=== PATIENT | male | born 1960 | race American Indian/Alaskan Native ===

== ENCOUNTER 2025-06-14 18:11 | Inpatient (IN) | payer MEDICARE, SELFPAY ==
[2025-06-14] VITALS (10 sets, daily range): BP systolic 141–163; BP diastolic 84–96; BMI 27.5; BMI 27.4
[2025-06-14 13:43] LABS: Hematocrit 23.1 % (39.0-52.0); Hemoglobin 6.8 g/dL (13.0-18.0); Mean Corp Hgb Conc. 29.4 g/dL (33.0-37.0); Mean Corpuscular Volume 70.6 fL (80.0-94.0); Nucleated Red Blood Cells % 0 % (-); Platelet Count 279 10^3/uL (130-400); Red Cell Dist. Width 16.5 % (11.5-14.5)
[2025-06-14 14:07] LABS: ALT (SGPT) 26 U/L (0-50); AST (SGOT) 25 U/L (17-59); Albumin 4.7 g/dl (3.5-5.0); Alkaline Phosphatase 63 U/L (38-126); Blood Urea Nitrogen 9 mg/dl (9-20); Calcium 8.7 mg/dl (8.4-10.2); Carbon Dioxide 24 mmol/L (22-30); Chloride 106 mmol/L (98-107); Glucose 122 mg/dl (70-99); Potassium 4.6 mmol/L (3.5-5.1); Sodium 139 mmol/L (135-145); Total Protein 7.7 g/dl (6.3-8.2); eGFR > 60.00
--- NOTE | 2025-06-14 16:24 | ED.GENMED ---
History of Present Illness
General
Chief Complaint: Rectal Bleeding
Source: patient
Exam Limitations: none
Time Seen by Provider: 06/14/25 16:02
History of Present Illness
History of Present Illness:
65yoM with a history of hypertension and BPH presenting with his daughter for evaluation of an abnormal outpatient lab. Patient had routine lab work 2 days ago and was found to have a hemoglobin of 6.9. Last blood work in September 2024 showed a
hemoglobin of 12.6. Patient reports intermittent rectal bleeding for the past 2 months. His last episode of rectal bleeding was 2 days ago. He has been symptomatic for the past week with shortness of breath and fatigue. No syncope. He denies
any abdominal or rectal pain. He had a colonoscopy in 2018 which showed multiple polyps and it was recommended that he have a repeat colonoscopy in 3 to 5 years which has not been scheduled. He does not take any blood thinners.
Phy Exam
General Physical Exam
General Presentation: no apparent distress
General Skin: warm and dry
General Habitus: normal
General Mental: alert
ENT Exam
ENT Exam: normocephalic
Cardiovascular Exam
Cardiovascular Exam: regular rate/rhythm
Pulmonary Exam
Pulmonary Exam: lungs clear, no respiratory distress, no rales, no crackles, no rhonchi and no wheezing
Gastrointestinal Exam
Gastrointestinal Exam: non tender, soft and non distended
Stool: other (Non-thrombosed external hemorrhoids. No stool obtained on digital rectal exam. No guilherme blood noted.)
Neurological Exam
Neurological Exam: alert
[place] Coma Scale
Eye Opening: Spontaneous
Verbal Response: Oriented
Motor Response: Obeys Commands
GCS Total Score: 15
Skin Exam
Skin Exam: normal color and warm/dry
Psychiatric Exam
Psychiatric Exam: normal mood/affect
Course
Orders/Labs/Results
Orders:
Orders
06/14/25 13:15
Type+Screen Urgent
Complete Blood Count/With Diff Urgent
Comprehensive Metabolic Panel Urgent
06/14/25 16:23
ABO2 Routine
BBK Wristband Number:
Associate notified that ABO2 has been ordered: [id number]
Date: 06/14/25
Time: 13:37
High School Coach ID: [id number]
06/14/25 16:26
Cardiac Monitoring- Treatment ONCE
06/14/25 16:27
Electrocardiogram (*1) Urgent
Reason for Study: Shortness of Breath
EKG- Treatment ONCE
06/14/25 16:32
Blood Bank Products [* Blood Bank Products] Urgent
Blood Bank Products: *Packed RBC Leuko(PRBC's)
Quantity: 1
Transfuse Today: Yes
Reason: Anemia
Abnormal Lab Results
06/14/25
13:15
RBC 3.27 L 10^6/uL
(4.70-6.10)
Hgb 6.8 L* g/dL
(13.0-18.0)
Hct 23.1 L %
(39.0-52.0)
MCV 70.6 L fL
(80.0-94.0)
MCH 20.8 L pg
(27.0-31.0)
MCHC 29.4 L g/dL
(33.0-37.0)
RDW 16.5 H %
(11.5-14.5)
Immature Gran % 0.6 H %
(0-0.5)
Monocytes % 11.5 H %
(1.7-9.3)
Glucose 122 H mg/dl
(70-99)
06/14/25 13:15
06/14/25 13:15
Vital Signs
Initial and Last Documented VS:
Initial Vital Signs
Temp Pulse Resp BP Pulse Ox
98 F 86 18 146/84 99
08/15/25 13:08 06/14/25 13:08 06/14/25 13:08 06/14/25 13:08 06/14/25 13:08
Last Documented Vital Signs
Temp Pulse Resp BP Pulse Ox
98.2 F 69 9 146/84 99
06/14/25 16:25 06/14/25 16:10 06/14/25 16:10 06/14/25 13:08 06/14/25 16:26
MDM/Problems Addressed
Differential Diagnosis Includes:
65yoM presenting for a hemoglobin of 6.9 on outpatient labs 2 days ago. Reports intermittent rectal bleeding x 2 days. Symptomatic with SOB and fatigue. VSS. He is non-toxic appearing. No stool obtained on LEONARD although no guilherme blood noted.
Differential diagnosis includes but is not limited to: Acute blood loss anemia, GI bleed, diverticular bleeding, hemorrhoidal bleeding, AVM, malignancy
Repeat lab work obtained in triage and hemoglobin is 6.8. Remainder of labs including BUN are normal. Consent obtained and 1 unit PRBCs ordered for transfusion. Will admit for further evaluation and management.
*Pulse Oximetry
SaO2: 99
Oxygen Mode of Delivery: Room air
Patient hypoxic: no (99%)
*EKG
Interpreted by ED Provider?: Yes
EKG Intrepretation Date: 06/14/25
Heart Rate: 66
Rate: normal
Rhythm: sinus
[place]: normal axis
Interval: normal interval
QRS Pattern: normal QRS
Ischemia: no ischemia
*Critical Care Note
Total Time (30-74mins, 75-104mins- exclusive of procedures): Not Applicable
ED Attending Note
-
Portions of this chart may have been created with voice recognition software.� Occasional wrong word or��sound alike� substitutions may have occurred due to the inherent limitations of voice recognition software.
Discharge Plan
Departure
Patient Disposition: Admit
Date of Disposition: 06/14/25
Time of Disposition: 16:52
Presentation/result/management discussed w/ accepting MD/DO: Hospitalist
Discharge Problem:
Symptomatic anemia, Rectal bleeding
Prescriptions:
No Action
tamsulosin [Flomax] 0.4 mg Capsule
0.4 mg PO HS
vitamin B complex [B Complete] Tablet
1 tab PO DAILY
lisinopril 40 mg Tablet
40 mg PO DAILY
Interventions
Interventions:
*Risk Screen - Suicide Last Done: 06/14/25 13:08
*General Assessment Last Done: 06/14/25 13:08
*Neglect/Abuse Screening Last Done: 06/14/25 13:08
*ED- Fall Risk Assessment Last Done: 06/14/25 16:26
*ED COVID-19 Vaccine History Last Done: 06/14/25 16:26
VB-Lxzsqu-Kziyfzwzbj Assessment Last Done: 06/14/25 16:13
ED- Cardiac Assessment Last Done: 06/14/25 16:13
ED- Pulmonary Assessment Last Done: 06/14/25 16:13
Discharge Date and Time
Print Language: GREEK
--- NOTE | 2025-06-14 17:06 | W.PN.UPDATE ---
Update Note
Progress Note Update
I saw and examined the patient.
The PELT DROPPER or PA's note was reviewed and I agree with the note.
General: No Apparent Distress, Comfortable and Conversant
HEENT: NormoCephalic, Moist mucous membranes, Atraumatic
Respiratory: Clear and Non Labored Respirations
Cardiac: S1/S2 and Regular Rhythm; No Rub or Gallop
GI: Soft, Non Tender, Non Distended and Normal Bowel Sounds
Musculoskeletal: No Edema, no deformity
Skin: Warm and dry
: NO Fernandez
Neuro: Awake, Alert, Nonfocal/grossly intact
Psych: Calm and Intact Judgment/Insight
Mr. Horta is a 65-year-old male with medical history of hypertension, enlarged prostate (on Flomax), and daily alcohol use (3 drinks per day, usually beer) who presented with intermittent rectal bleeding from the past few months. He reports bright
red blood sometimes with clots dripping in the toilet usually with bowel movements but sometimes even without bowel movements. He also reports that these bleeding episodes are sometimes associated with mild rectal pain but not abdominal pain. He
has been experiencing progressive weakness and dizziness throughout this time. He was seen by his PCP and obtained outpatient labs 2 days ago. His labs resulted with a hemoglobin of 6.8 today which is why he is now seeking medical treatment in the
ED. His hemoglobin was 12.6 in September 2024.
In the ED he has been normotensive, afebrile, and saturating appropriately on room air. His labs in the ED were significant for hemoglobin of 6.8 with an MCV of 70.6. He was consented for blood transfusion and has been admitted for further
evaluation and management of GI bleeding.
GI bleeding:
- Appears lower, likely internal hemorrhoids
- Consent obtained, type and screen, will transfuse 1 unit PRBCs
- Will ask for GI evaluation, eventual colonoscopy/sigmoidoscopy
Symptomatic anemia requiring transfusions:
- Plan as above
Hypertension:
- Continue home lisinopril with holding parameters for hypotension
DVT prophylaxis: SCDs considering active bleeding
CODE STATUS: Full code
Total time spent on today's encounter was 54 minutes.
--- NOTE | 2025-06-14 17:19 | HPS.HSE ---
Family Physician
-
Family Physician: Zack Boudreaux
Chief Complaint
-
Low Hgb; Rectal Bleeding
History of Present Illness
Patient is a 65 y/o male past medical history of hypertension and BPH who presents with low hemoglobin and rectal bleeding. Patient had routine blood work completed two days ago which revealed low hemoglobin and he was referred to the emergency
department for evaluation. Patient reports intermittent bright red blood per rectum for the last several months. He reports bleeding will occur for a few days and then seem to stop on its own. He notes episodes are occasionally associate with some
rectal pain. He states he did have a colonoscopy back in 2019 which did show multiple polyps. He reports associated dizziness and fatigue.
Medical History
Past Medical History
Past Medical History: Reports Other
Additional Past Medical History:
Essential Hypertension
BPH
Past Surgical History: Reports None
Social History
Tobacco: Non-smoker
Alcohol: Daily (~ 3 Beers Nightly)
Family History
Family History: Other (Patient denies any family history of colon cancer or inflammatory bowel disease )
Allergies / Home Medications
Allergies reflects when Allergies were last updated in [facility].
Home Medications with original date entered in [facility]
Allergy/Medication List:
Allergies
Allergy/AdvReac Type Severity Reaction Status Date / Time
No Known Allergies Allergy Unverified 06/14/25 13:07
Home Medications
lisinopril 40 mg tablet 40 mg PO DAILY 06/14/25
tamsulosin 0.4 mg capsule (Flomax) 0.4 mg PO HS 06/14/25
vitamin B complex 1 tab PO DAILY 06/14/25
Review of Systems
-
A 12 point ROS was completed and negative except as noted: Yes
Constitutional: Denies Fever
Respiratory: Denies Cough
Cardiac: Denies Chest Pain
Physical Exam
Vital Signs
Vital Signs
Temp Pulse Resp BP Pulse Ox
98.2 F 69 9 146/84 99
06/14/25 16:25 06/14/25 16:10 06/14/25 16:10 06/14/25 13:08 06/14/25 16:26
Physical Exam
General: Comfortable and Conversant
HEENT: Anicteric and Moist mucous membranes
Respiratory: Clear and Non Labored Respirations
Cardiac: S1/S2 and Regular Rhythm
GI: Soft and Non Tender
Rectal: Deferred by Provider and Other (Hemorrhoids noted by ED staff)
Musculoskeletal: No Clubbing and No Cyanosis
Skin: Warm and Dry
Neuro: Awake, Alert, Oriented and Nonfocal/grossly intact
Psych: Calm
Laboratory Results
-
06/14/25 13:15
06/14/25 13:15
Laboratory Results
Total Bilirubin 0.5 mg/dl (0.2-1.3) 06/14/25 13:15
AST 25 U/L (17-59) 06/14/25 13:15
ALT 26 U/L (0-50) 06/14/25 13:15
Alkaline Phosphatase 63 U/L (38-126) 06/14/25 13:15
Data Reviewed
-
Lab Data: Labs Reviewed by me
Impression/Plan
-
Symptomatic Anemia secondary to Rectal Bleeding (likely hemorrhoidal in nature)
-Transfuse 1 unit PRBCs
-Trend Hgb
-Consult GI
-Allow clear liquids
Essential Hypertension
-Continue lisinopril with hold parameters
BPH
-Continue tamsulosin
Daily Alcohol Use
-Monitor for signs/symptoms of withdrawal
DVT proph: SCDs
Code Status: Full COde
[2025-06-14 18:27] LABS: Total Iron Binding Capacity 481 ug/dl (261-462)
[2025-06-14 18:30] LABS: Iron < 20 ug/dl (49-181)
[2025-06-14 19:24] LABS: Ferritin 3.7 ng/ml (17.9-464.0)
--- NOTE | 2025-06-14 19:30 | EDRN ---
Report received, updated patient that they will go upstairs shortly
[2025-06-14 19:55] LABS: Folate 13.6 ng/ml (2.76-20); Vitamin B12 331 pg/ml (239-931)
[2025-06-14] MEDS: FLOMAX 0.4 MG PO (22:54)
[2025-06-15 00:43] LABS: Hematocrit 24.9 % (39.0-52.0); Hemoglobin 7.6 g/dL (13.0-18.0)
--- NOTE | 2025-06-15 06:17 | CON.GI ---
Addendum entered and electronically signed by Noe Clement MD 06/15/25 11:37:
I saw and examined the patient.
The PA's note was reviewed and I agree with the note.
Comment:
65-year-old male with h/o HTN and BPH who presents with symptomatic anemia and rectal bleeding. He had outpatient labs which showed Hgb of 6.9 and was advised to come to the ER. He reports having rectal bleeding for past few months consisting
clots/maroon-colored blood with stool. Denies melena. No prior EGD. Denies abdominal pain or NSAID use. His last colonoscopy was in 2019 with few polyps. He received a unit of blood with appropriate response. Given the degree of anemia, we
will plan for endoscopic evaluation during his inpatient stay. Plan for EGD/colonoscopy on Tuesday. Regular diet today, CLD tomorrow with bowel prep.
Original Note:
Consultation
-
Date/Time Consultation Requested: 06/14/252039
Date/Time Consultation Performed: 06/15/25829
Requesting Provider: Brenda Godfrey PA-C
Performing Provider: REGINALD Patel, Noe Clement MD
Reason for Consultation: rectal bleeding
Medical History
Chief Complaint / HPI
Chief Complaint: shortness of breath, rectal bleeding
History of Present Illness:
Pt is a 65yo with hx BPH, daily ETOH use 2-3 drinks, and HTN presents to ER with low hbg and rectal bleeding. Prior to admission noted with hbg 6.9 with last check in September 2024 12.6. On admission hbg 6.8 and iron studies consistent with iron
deficiency. Rectal exam in ER with non thrombosed hemorrhoids without guilherme blood. hx colonoscopy in 2019 pt recall as normal. No hx EGD in past.
At this time patient admits to passing intermittent red blood with larger amounts at time and entire bowel red. He otherwise denies dysphagia, GERD, nausea, vomiting, abdominal pain, diarrhea, constipation or black stools. Denies NSAID or
anticoagulation use.
Past Medical History
Past Medical History: HTN and Other (BPH)
Social History
Tobacco: Non-Smoker
Alcohol: Daily (2-3 drinks)
Drug: None
Personal:
Living: With Family
Employment: Retired
Family History
Family History: Other (no family hx colon Ca or polyps)
Allergies / Home Medications
Allergy/AdvReac Type Severity Reaction Status Date / Time
No Known Allergies Allergy Unverified 06/14/25 13:07
�Medication �Instructions �Recorded
lisinopril 40 mg tablet 40 mg PO DAILY 06/14/25
tamsulosin 0.4 mg capsule (Flomax) 0.4 mg PO HS 06/14/25
vitamin B complex 1 tab PO DAILY 06/14/25
Review of Systems
-
History Source: Patient
Constitutional: Reports No Symptoms
Respiratory: Reports Trouble Breathing
Cardiac: Reports No Symptoms
Abdomen/GI: Reports Bloody Stools
: Reports No Symptoms
Musculoskeletal: Reports No Symptoms
Skin: Reports No Symptoms
Neurological: Reports Weakness
Endocrine: Reports No Symptoms
Hematologic/Lymphatic: Reports Bleeding
Vital Signs
Temp Pulse Resp BP Pulse Ox
98.0 F 66 16 155/95 99
06/14/25 20:40 06/14/25 20:40 06/14/25 20:40 06/14/25 20:40 06/14/25 20:40
Physical Exam
Exam
General: Well Developed, Well Nourished and No Apparent Distress
HEENT: Normocephalic and Anicteric
Respiratory: Clear
Cardiac: Regular Rhythm
GI: Soft, Non Tender and Non Distended
Rectal: Other (ER with non thrombosed hemorrhoids without guilherme blood)
Musculoskeletal: No Clubbing and No Cyanosis
Skin: Warm and Dry
Neuro: Awake, Alert and AO x 3
Psych: Calm
Results
WBC 5.1 10^3/uL (4.8-10.8) 06/14/25 13:15
Hgb 7.6 g/dL (13.0-18.0) L 06/15/25 00:25
Hct 24.9 % (39.0-52.0) L 06/15/25 00:25
MCV 70.6 fL (80.0-94.0) L 06/14/25 13:15
Plt Count 279 10^3/uL (130-400) 06/14/25 13:15
Absolute Neuts (auto) 2.7 10^3/uL (1.4-6.5) 06/14/25 13:15
Sodium 139 mmol/L (135-145) 06/14/25 13:15
Potassium 4.6 mmol/L (3.5-5.1) 06/14/25 13:15
Chloride 106 mmol/L (98-107) 06/14/25 13:15
Carbon Dioxide 24 mmol/L (22-30) 06/14/25 13:15
BUN 9 mg/dl (9-20) 06/14/25 13:15
Creatinine 0.7 mg/dL (0.7-1.3) 06/14/25 13:15
Calcium 8.7 mg/dl (8.4-10.2) 06/14/25 13:15
Total Bilirubin 0.5 mg/dl (0.2-1.3) 06/14/25 13:15
AST 25 U/L (17-59) 06/14/25 13:15
ALT 26 U/L (0-50) 06/14/25 13:15
Alkaline Phosphatase 63 U/L (38-126) 06/14/25 13:15
Diagnostic Image Results:
Prior GI Procedures:
EGD:
Colonoscopy:
Assessment / Plan
-
Pt is a 65yo with hx BPH, daily ETOH use, and HTN presents to ER with low hbg and rectal bleeding. Prior to admission noted with hbg 6.9 with last check in September 2024 12.6. On admission hbg 6.8 and iron studies consistent with iron deficiency.
Rectal exam in ER with non thrombosed hemorrhoids without guilherme blood.Last colonoscopy 2019 pt recalls as normal.
-rectal bleeding
-symptomatic microcytic iron deficiency anemia likely related to slow blood loss with rectal bleeding
other med problems:
-BPH
-daily ETOH use
-HTN
PLAN:
etiology of bleeding related to PUD, ectasia, mass, hemorrhoids with increased rectal bleeding vs other
plan for EGD/colon - will review with Dr. Clement if inpatient vs OP testing and timing
trend hbg and stool records
ok for clear diet
add IV iron
family updated
-
-
Thank you for consultation and allowing me to participate in the patient's care. Please call the stone driller helper GI physician during the after hours with any questions or concerns.
[2025-06-15 07:03] LABS: Hematocrit 25.5 % (39.0-52.0); Hemoglobin 7.8 g/dL (13.0-18.0); Mean Corp Hgb Conc. 30.6 g/dL (33.0-37.0); Mean Corpuscular Volume 71.2 fL (80.0-94.0); Platelet Count 282 10^3/uL (130-400); Red Cell Dist. Width 16.7 % (11.5-14.5)
[2025-06-15 07:42] LABS: Blood Urea Nitrogen 8 mg/dl (9-20); Calcium 8.3 mg/dl (8.4-10.2); Carbon Dioxide 22 mmol/L (22-30); Chloride 107 mmol/L (98-107); Estimated Creatinine Clearance 115 ml/min; Glucose 100 mg/dl (70-99); Potassium 4.4 mmol/L (3.5-5.1); Sodium 138 mmol/L (135-145); eGFR > 60.00
[2025-06-15] MEDS: THIAMINE INJECTION 200 MG IV ×2 (08:07→21:21)
[2025-06-15] MEDS: FOLVITE 1 MG PO (08:08)
[2025-06-15] MEDS: ZESTRIL 40 MG PO (08:08)
[2025-06-15 08:10] VITALS: BP 126/73
[2025-06-15 11:39] VITALS: BP 116/71
[2025-06-15] MEDS: FERRLECIT 110 MG IV (13:03)
--- NOTE | 2025-06-15 13:42 | W.PN.HOSP.TC ---
Today's Communication/Plan
-
Assessment / Plan
Assessment / Plan
General: No Apparent Distress, Comfortable and Conversant
HEENT: NormoCephalic, Moist mucous membranes, Atraumatic
Respiratory: Clear and Non Labored Respirations
Cardiac: S1/S2 and Regular Rhythm; No Rub or Gallop
GI: Soft, Non Tender, Non Distended and Normal Bowel Sounds
Musculoskeletal: No Edema, no deformity
Skin: Warm and dry
: NO Fernandez
Neuro: Awake, Alert, Nonfocal/grossly intact
Psych: Calm and Intact Judgment/Insight
Mr. Horta is a 65-year-old male with medical history of hypertension, enlarged prostate (on Flomax), and daily alcohol use (3 drinks per day, usually beer) who presented with intermittent rectal bleeding from the past few months. He reports bright
red blood sometimes with clots dripping in the toilet usually with bowel movements but sometimes even without bowel movements. He also reports that these bleeding episodes are sometimes associated with mild rectal pain but not abdominal pain. He
has been experiencing progressive weakness and dizziness throughout this time. He was seen by his PCP and obtained outpatient labs 2 days ago. His labs resulted with a hemoglobin of 6.8 which is why he sought medical treatment in the ED. His
hemoglobin was 12.6 in September 2024.
In the ED he was normotensive, afebrile, and saturating appropriately on room air. His labs in the ED were significant for hemoglobin of 6.8 with an MCV of 70.6. He was consented for blood transfusion and has been admitted for further evaluation
and management of GI bleeding.
GI bleeding:
- Appears lower, likely internal hemorrhoids
- Consent obtained, transfused 1 unit PRBCs with appropriate response and hemoglobin 7.8
- No active bleeding currently
- GI following, plan for EGD and colonoscopy on Sunday 06/17
- Regular diet for now, clear liquids and bowel prep tomorrow
Symptomatic anemia requiring transfusions:
- Plan as above
Hypertension:
- Continue home lisinopril with holding parameters for hypotension
DVT prophylaxis: SCDs considering recent bleeding
CODE STATUS: Full code
Total time spent on today's encounter was 52 minutes.
Anticipated Discharge: 24 - 48 hours
Subjective/Interval History
-
Date of Service: June 15, 2025
Patient was seen and examined at bedside this morning. Feeling less fatigued and no longer short of breath after improvement in hemoglobin following transfusion of 1 unit PRBCs. Continuing clear liquid diet.
Objective Data
-
Labs:
Laboratory Results
06/15/25
06:19
WBC 5.3
Hgb 7.8 L
Hct 25.5 L
Plt Count 282
Sodium 138
Potassium 4.4
Chloride 107
Carbon Dioxide 22
BUN 8 L
Creatinine 0.7
Glucose 100 H
Calcium 8.3 L
Vital Signs:
Vital Signs
Temp Pulse Resp BP Pulse Ox
98.3 F 66 16 116/71 96
06/15/25 11:39 06/15/25 11:39 06/15/25 11:39 06/15/25 11:39 06/15/25 11:39
I&O
06/14/25 06/15/25 06/16/25
06:59 06:59 06:59
Intake Total 250 / 250
Balance 250 / 250
Review of Systems
-
History Source: Patient
All other systems: Reviewed and negative
Physical Exam
-
General: No Apparent Distress
[2025-06-15 16:42] VITALS: BP 105/61
[2025-06-15 19:52] VITALS: BP 120/76
[2025-06-15] MEDS: FLOMAX 0.4 MG PO (21:21)
[2025-06-15 23:45] VITALS: BP 110/67
[2025-06-16 03:27] VITALS: BP 106/73
[2025-06-16 07:25] LABS: INR 1.09; PT 14.4 Sec (11.4-14.6)
[2025-06-16 07:28] LABS: Hematocrit 27.2 % (39.0-52.0); Hemoglobin 8.2 g/dL (13.0-18.0); Mean Corp Hgb Conc. 30.1 g/dL (33.0-37.0); Mean Corpuscular Volume 71.6 fL (80.0-94.0); Platelet Count 297 10^3/uL (130-400); Red Cell Dist. Width 17.4 % (11.5-14.5)
[2025-06-16 07:30] VITALS: BP 119/68
[2025-06-16 07:51] LABS: Blood Urea Nitrogen 13 mg/dl (9-20); Calcium 8.8 mg/dl (8.4-10.2); Carbon Dioxide 20 mmol/L (22-30); Chloride 111 mmol/L (98-107); Estimated Creatinine Clearance > 125 ml/min; Glucose 105 mg/dl (70-99); Potassium 4.5 mmol/L (3.5-5.1); Sodium 138 mmol/L (135-145); eGFR > 60.00
[2025-06-16] MEDS: FOLVITE 1 MG PO (08:41)
[2025-06-16] MEDS: THIAMINE INJECTION 200 MG IV ×2 (08:41→21:43)
[2025-06-16] MEDS: ZESTRIL PO (08:42)
[2025-06-16 11:30] VITALS: BP 113/67
--- NOTE | 2025-06-16 12:53 | W.PN.GI.CBS2 ---
Today's Communication / Plan
-
egd/colon tomorrow
Assessment / Plan
-
Pt is a 65yo with hx BPH, daily ETOH use, and HTN presents to ER with low hbg and rectal bleeding. Prior to admission noted with hbg 6.9 with last check in September 2024 12.6. On admission hbg 6.8 and iron studies consistent with iron deficiency.
Rectal exam in ER with non thrombosed hemorrhoids without guilherme blood.Last colonoscopy 2019 pt recalls as normal.
No further bleeding o/n. CLD today. Hgb 8.2 today. Will plan on EGD/colonoscopy tomorrow.
Total Time Spent with Patient (in minutes): 35
Subjective
Subjective
Date of Service: June 16, 2025
No events overnight.
Objective
Data Reviewed
Laboratory Data:
Laboratory Results
06/16/25 06:25
06/16/25 06:25
Laboratory Results
PT 14.4 Sec (11.4-14.6) 06/16/25 06:25
INR 1.09 06/16/25 06:25
Total Bilirubin 0.5 mg/dl (0.2-1.3) 06/14/25 13:15
AST 25 U/L (17-59) 06/14/25 13:15
ALT 26 U/L (0-50) 06/14/25 13:15
Alkaline Phosphatase 63 U/L (38-126) 06/14/25 13:15
Vital Signs and I&O:
Vital Signs
Temp Pulse Resp BP Pulse Ox
97.9 F 78 16 113/67 98
06/16/25 11:30 06/16/25 11:30 06/16/25 11:30 06/16/25 11:30 06/16/25 11:32
I&O
06/15/25 06/16/25 06/17/25
06:59 06:59 06:59
Intake Total 250 / 250 960 / 960
Balance 250 / 250 960 / 960
--- NOTE | 2025-06-16 13:04 | W.PN.HOSP.TC ---
Today's Communication/Plan
-
Assessment / Plan
Assessment / Plan
General: No Apparent Distress, Comfortable and Conversant
HEENT: NormoCephalic, Moist mucous membranes, Atraumatic
Respiratory: Clear and Non Labored Respirations
Cardiac: S1/S2 and Regular Rhythm; No Rub or Gallop
GI: Soft, Non Tender, Non Distended and Normal Bowel Sounds
Musculoskeletal: No Edema, no deformity
Skin: Warm and dry
: NO Fernandez
Neuro: Awake, Alert, Nonfocal/grossly intact
Psych: Calm and Intact Judgment/Insight
Mr. Horta is a 65-year-old male with medical history of hypertension, enlarged prostate (on Flomax), and daily alcohol use (3 drinks per day, usually beer) who presented with intermittent rectal bleeding from the past few months. He reports bright
red blood sometimes with clots dripping in the toilet usually with bowel movements but sometimes even without bowel movements. He also reports that these bleeding episodes are sometimes associated with mild rectal pain but not abdominal pain. He
has been experiencing progressive weakness and dizziness throughout this time. He was seen by his PCP and obtained outpatient labs 2 days ago. His labs resulted with a hemoglobin of 6.8 which is why he sought medical treatment in the ED. His
hemoglobin was 12.6 in September 2024.
In the ED he was normotensive, afebrile, and saturating appropriately on room air. His labs in the ED were significant for hemoglobin of 6.8 with an MCV of 70.6. He was consented for blood transfusion and has been admitted for further evaluation
and management of GI bleeding.
GI bleeding:
- Appears lower, likely internal hemorrhoids
- Consent obtained, transfused 1 unit PRBCs with appropriate response and hemoglobin 7.8
- No active bleeding currently
- GI following, plan for EGD and colonoscopy on Sunday 06/17
- Clear liquid diet for now, bowel prep this evening
Symptomatic anemia requiring transfusions:
- Plan as above
Hypertension:
- Continue home lisinopril with holding parameters for hypotension
DVT prophylaxis: SCDs considering recent bleeding
CODE STATUS: Full code
Total time spent on today's encounter was 52 minutes.
Anticipated Discharge: 24 - 48 hours
Subjective/Interval History
-
Date of Service: June 16, 2025
Patient was seen and examined at bedside this morning. Comfortable, no recent rectal bleeding. Hemoglobin stable after transfusion 1 unit PRBCs.
Objective Data
-
Labs:
Laboratory Results
06/16/25
06:25
WBC 6.5
Hgb 8.2 L
Hct 27.2 L
Plt Count 297
PT 14.4
INR 1.09
Sodium 138
Potassium 4.5
Chloride 111 H
Carbon Dioxide 20 L
BUN 13
Creatinine 0.6 L
Glucose 105 H
Calcium 8.8
Vital Signs:
Vital Signs
Temp Pulse Resp BP Pulse Ox
97.9 F 78 16 113/67 98
06/16/25 11:30 06/16/25 11:30 06/16/25 11:30 06/16/25 11:30 06/16/25 11:32
I&O
06/15/25 06/16/25 06/17/25
06:59 06:59 06:59
Intake Total 250 / 250 960 / 960
Balance 250 / 250 960 / 960
Review of Systems
-
History Source: Patient
All other systems: Reviewed and negative
Physical Exam
-
General: No Apparent Distress
[2025-06-16] MEDS: FERRLECIT 110 MG IV (13:21)
[2025-06-16 16:00] VITALS: BP 126/77
[2025-06-16] MEDS: NULYTELY SOLUTION 2 LITERS PO (16:54)
[2025-06-16 20:26] VITALS: BP 140/88
[2025-06-16] MEDS: FLOMAX 0.4 MG PO (21:43)
[2025-06-17] VITALS (7 sets, daily range): BP systolic 12–133; BP diastolic 58–80
[2025-06-17] MEDS: NULYTELY SOLUTION 2 LITERS PO (05:37)
--- NOTE | 2025-06-17 07:20 | W.PN.HOSP.TC ---
Addendum entered and electronically signed by Rai Godfrey DO 06/18/25 09:20:
CDI: Acute blood loss anemia superimposed on chronic anemia, AOCD
Original Note:
Today's Communication/Plan
-
- EGD / Colonoscopy today
- discharge today with CBC on Tuesday06/21/2025
- outpatient follow-up with GI, PCP
- pantoprazole as outpatient
Assessment / Plan
Assessment / Plan
65 yo M PMH HTN, BPH p/w rectal bleeding and symptomatic anemia
GI bleeding:
- Appears lower, likely internal hemorrhoids
- s/p 1u pRBC
- Hgb this am 8.8
- hemodynamically stable
- GI following, plan for EGD and colonoscopy today Sunday 06/17
- discharge today with close follow-up: CBC on Tuesday06/21/2025
- outpatient follow-up with GI, PCP
- start pantoprazole as outpatient 40mg daily
Symptomatic anemia requiring transfusions:
- Plan as above
Hypertension:
- Continue home lisinopril with holding parameters for hypotension
DVT ppx: SCDs considering recent bleeding
Disposition: discharge today
Anticipated Discharge: Today
Subjective/Interval History
-
Date of Service: June 17, 2025
65y o M HTN, BPH p/w rectal bleeding and low Hgb of 6.8 with dizziness and fatigue.
He received 1 unit of pRBC on 06/14
Doing well this morning, no pain, no weakness. Has been taking the coloprep and noticed some blood in stool output
Objective Data
-
Labs:
Laboratory Results
06/17/25
06:00
WBC Pending
Hgb Pending
Hct Pending
Plt Count Pending
Sodium Pending
Potassium Pending
Chloride Pending
Carbon Dioxide Pending
BUN Pending
Creatinine Pending
Glucose Pending
Calcium Pending
Hgb last 8.2, today is pending
Vital Signs:
Vital Signs
Temp Pulse Resp BP Pulse Ox
97 F 77 16 123/80 99
06/17/25 03:31 06/17/25 03:31 06/17/25 03:31 06/17/25 03:31 06/17/25 03:31
I&O
06/16/25 06/17/25 06/18/25
06:59 06:59 06:59
Intake Total 960 / 960 1280 / 1280
Balance 960 / 960 1280 / 1280
Review of Systems
-
History Source: Patient
Constitutional: Reports No Symptoms
EENT: Reports No Symptoms Reported
Respiratory: Reports No Symptoms
Cardiac: Reports No Symptoms
Abdomen/GI: Reports No Symptoms and Bloody Stools
Genitourinary: Reports No Symptoms
Musculoskeletal: Reports Other
Skin: Reports No Symptoms
Neuro: Reports No Symptoms
Physical Exam
-
General: No Apparent Distress
HEENT: Normocephalic and Atraumatic
GI: Soft and Nontender
Musculoskeletal: No Edema
Neuro: Awake and Alert
Psych: Calm
[2025-06-17] MEDS: FOLVITE 1 MG PO (08:27)
[2025-06-17] MEDS: ZESTRIL 40 MG PO (08:28)
[2025-06-17] MEDS: THIAMINE INJECTION 200 MG IV (08:28)
[2025-06-17 09:04] LABS: Blood Urea Nitrogen 8 mg/dl (9-20); Calcium 9.3 mg/dl (8.4-10.2); Carbon Dioxide 23 mmol/L (22-30); Chloride 108 mmol/L (98-107); Estimated Creatinine Clearance 115 ml/min; Glucose 98 mg/dl (70-99); Potassium 4.6 mmol/L (3.5-5.1); Sodium 140 mmol/L (135-145); eGFR > 60.00
[2025-06-17 10:18] LABS: Hematocrit 29.5 % (39.0-52.0); Hemoglobin 8.8 g/dL (13.0-18.0); Mean Corp Hgb Conc. 29.8 g/dL (33.0-37.0); Mean Corpuscular Volume 72.5 fL (80.0-94.0); Nucleated Red Blood Cells % 0 % (-); Platelet Count 332 10^3/uL (130-400); Red Cell Dist. Width 18.0 % (11.5-14.5)
[2025-06-17] MEDS: PROTONIX 40 MG PO (12:25)
[2025-06-17] MEDS: FERRLECIT 110 MG IV (13:29)
--- NOTE | 2025-06-17 13:58 | W.DCSUMMARY ---
Addendum entered and electronically signed by Fernando Hernandez MD, Resident 06/18/25 10:32:
CDI:
# Rectal bleeding
# Acute blood loss anemia
Original Note:
Documented by User: Fernando Hernandez MD, Resident 06/17/25 14:28
Discharge Summary
Discharge Data
Date of Admission: 06/14/25
Date of Discharge: 06/17/25
-
Pending Results: No
Hospital Course
Discharging Physician : Rai Godfrey; Fernando Hernandez
Disposition : Home
Primary care physician : Zack Boudreaux
Principal Discharge diagnosis : Rectal bleeding
Chronic Discharge diagnosis : HTN, BPH
Hospital Course :
65 yo M presented to ED on 06/14 with rectal bleeding for months and was found to have low hemoglobin with symptomatic anemia. The following problems were addressed during this admission
# Rectal bleeding
# Symptomatic anemia
- attributed to GI bleeding, per patient, intermittent over several months
- The patient's initial hemoglobin was 6.8; experienced dizziness and fatigue as symptoms
- He received 1 unit pRBC, which appropriately raised his hemoglobin to 7.8
- His hemoglobin trend has since been stable, most recently at 8.8
- EGD and colonoscopy performed on 06/17 (finding below)
- Pathology for specimens sent
- will start daily pantoprazole 40mg PO upon discharge
# Chronic issues per below
# HTN: lisinopril
# BPH: tamsulosin
Procedure findings :
EGD 06/17/2025:
Findings:
- LA Grade C (one or more mucosal breaks continuous between tops of
2 or more mucosal folds, less than 75% circumference) esophagitis
with no bleeding was found at the gastroesophageal junction.
- Diffuse mildly erythematous mucosa without bleeding was found in
the gastric body. Biopsies were taken with a cold forceps for
Helicobacter pylori testing.
- The duodenal bulb, first portion of the duodenum and second
portion of the duodenum were normal.
Impression:
- LA Grade C esophagitis with no bleeding.
- Erythematous mucosa in the gastric body. Biopsied.
- Normal duodenal bulb, first portion of the duodenum and second
portion of the duodenum.
Recommendation:
- Use Protonix (pantoprazole) 40 mg PO daily.
- Await pathology results.
- Perform a colonoscopy today.
Colonoscopy 06/17/2025:
Findings:
- Hemorrhoids were found on perianal exam.
- The terminal ileum appeared normal.
- A 4 mm polyp was found in the transverse colon. The polyp was
sessile. The polyp was removed with a cold snare. Resection and
retrieval were complete.
- Internal hemorrhoids were found during retroflexion. The
hemorrhoids were Grade II (internal hemorrhoids that prolapse but
reduce spontaneously) and medium-sized.
Impression:
- Hemorrhoids found on perianal exam.
- The examined portion of the ileum was normal.
- One 4 mm polyp in the transverse colon, removed with a cold
snare. Resected and retrieved.
- Internal hemorrhoids.
Recommendation:
- [facility] patient to [facility] for [facility] care.
- Resume regular diet today.
- Await pathology results.
- Repeat colonoscopy in 7-10 years for surveillance based on
pathology results.
Discharge Plan
-
Patient Disposition: Home (Routine Discharge)
Discharge Diagnosis/Procedures: Rectal bleeding s/p EGD and Colonoscopy on 06/17/2025
Condition: Good
Diet: Regular
Activity: As tolerated
Driving Restrictions: As prior to admission
Bathing Restrictions: None
Blood Work: CBC test on 06/21/2025
Others Tests: Follow-up polyp pathological studies with gastroenterology
Referrals:
Noe Clement MD [Active, Gastroenterology] - in three to four weeks
Zack Boudreaux MD [Family Provider, Internal Medicine] - in less than 1 week
Additional Discharge Medication Instructions: Please take pantoprazole 40mg 1 tablet by mouth daily
Please check CBC blood test by Tuesday and discuss with your PCP
You may continue your home medications as below.
Please follow-up with GI in 3-4 weeks.
Prescriptions:
New
pantoprazole 40 mg Tablet,Delayed Release (Dr/Ec)
40 mg PO DAILY Qty: 30 0RF
Continued
tamsulosin [Flomax] 0.4 mg Capsule
0.4 mg PO HS
vitamin B complex Tablet
1 tab PO DAILY
lisinopril 40 mg Tablet
40 mg PO DAILY
Discharge Orders:
Discharge Patient (As Directed); Ordered 06/17/25
Ordered By: Fernando Hernandez
Discharge Date and Time
Print Language: EGYPTIAN

Documented by User: Rai Godfrey DO 06/17/25 14:58
Discharge Summary
Discharge Data
Date of Admission: 06/14/25
Date of Discharge: 06/17/25
Total time spent discharging patient (in min): 31
Discharge Plan
-
Patient Disposition: Home (Routine Discharge)
Discharge Diagnosis/Procedures: Rectal bleeding s/p EGD and Colonoscopy on 06/17/2025
Condition: Good
Diet: Regular
Activity: As tolerated
Driving Restrictions: As prior to admission
Bathing Restrictions: None
Blood Work: CBC test on 06/21/2025
Others Tests: Follow-up polyp pathological studies with gastroenterology
Referrals:
Noe Clement MD [Active, Gastroenterology] - in three to four weeks
Zack Boudreaux MD [Family Provider, Internal Medicine] - in less than 1 week
Additional Discharge Medication Instructions: Please take pantoprazole 40mg 1 tablet by mouth daily
Please check CBC blood test by Tuesday and discuss with your PCP
You may continue your home medications as below.
Please follow-up with GI in 3-4 weeks.
Prescriptions:
New
pantoprazole 40 mg Tablet,Delayed Release (Dr/Ec)
40 mg PO DAILY Qty: 30 0RF
Continued
tamsulosin [Flomax] 0.4 mg Capsule
0.4 mg PO HS
vitamin B complex Tablet
1 tab PO DAILY
lisinopril 40 mg Tablet
40 mg PO DAILY
Discharge Orders:
Discharge Patient (As Directed); Ordered 06/17/25
Ordered By: Fernando Hernandez
Discharge Date and Time
Print Language: EGYPTIAN
--- NOTE | 2025-06-17 17:44 | CM ---
entered order for discharge.
Spoke with dgt Mina [phone]. She said son will drive pt home today.
Reviewed IMM with her and she agreed with discharge today.
Offered VN she declined need.
PLAN Home no needs q
--- NOTE | 2025-06-18 09:08 | PN.CDI ---
CDI
- -
CDI:
Physician Documentation Request
Admit Date: 06/14/25 18:11
Dear Doctor Mary,
06/14 Discharge Summary: 'Rectal bleeding # Symptomatic anemia - attributed to GI bleeding, per patient, intermittent over several months...He received 1 unit pRBC, which appropriately raised his hemoglobin to 7.8'
Laboratory Tests
06/14/25 06/15/25 06/15/25
13:15 00:25 06:19
Hgb 6.8 L* 7.6 L 7.8 L
Hct 23.1 L 24.9 L 25.5 L
Based on the above, could you clarify, in your progress note, which of the following is the most likely type of anemia you are evaluating, monitoring and/or treating?
Acute blood loss anemia
Acute blood loss anemia with baseline chronic anemia (Specify type)
Anemia of chronic disease - indicate if neoplastic disease, CKD or other
Other
Use of terms such as suspected, likely, concern for, or probable (associated with a specific diagnosis that is being evaluated, monitored, or treated as if it exists) are acceptable and can be coded in the inpatient setting, when documented at the
time of discharge.
Thank you,
Martha Coffman RN, BSN
CDI Specialist
Available via [employer] text
Please use your independent medical judgment in providing your response.
== END 2025-06-17 15:50 | disposition home or self-care (01) | DRG 394 ==
LOC: 3 WEST ACU 18:11
PROVIDERS: Emergency Medicine; Nurse Practitioner Adult Health; Physician Assistant Medical; ADMITTING PHYSICIAN Internal Medicine; ATTENDING PHYSICIAN Internal Medicine; CONSULT PHYSICIAN Internal Medicine Gastroenterology; EMERGENCY PHYSICIAN Emergency Medicine; FAMILY PHYSICIAN Internal Medicine
PROC: 30233N1 Transfusion of Nonautologous Red Blood Cells into Peripheral Vein, Percutaneous Approach (ICD-10-PCS; 2025-06-14)
PROC: 0DBL8ZZ Excision of Transverse Colon, Via Natural or Artificial Opening Endoscopic (ICD-10-PCS; 2025-06-17)
PROC: 0DB68ZX Excision of Stomach, Via Natural or Artificial Opening Endoscopic, Diagnostic (ICD-10-PCS; 2025-06-17)
DX: K64.1 Second degree hemorrhoids (principal); D62 Acute posthemorrhagic anemia; I10 Essential (primary) hypertension; N40.0 Benign prostatic hyperplasia without lower urinary tract symptoms; K63.5 Polyp of colon; K20.90 Esophagitis, unspecified without bleeding; K29.70 Gastritis, unspecified, without bleeding; Z79.899 Other long term (current) drug therapy
CPT/HCPCS: 36430; 80048; 80053; 82607; 82728; 82746; 83540; 83550; 85014; 85018; 85025; 85027; 85610; 86850; 86900; 86901; 86920; 88305; 88342; 93005; 99285; J2916; P9016